=== PATIENT | female | born 1955 | race Caucasian/White ===

== ENCOUNTER 2022-05-25 12:01 | Outpatient (REF) | payer MEDICARE, BC, SELFPAY ==
[2022-05-25 15:08] LABS: HCT 38.1 % (36.0-46.0); MCH 25.4 pg (27.0-33.0); MCHC 31.5 % (32.0-36.0); MCV 81 fL (80-95); MPV 9.2 fL (8.0-11.0); Platelet Count 370 10^3/uL (130-400); RBC 4.73 10^6/uL (3.93-5.22); RDW 16.1 % (11.7-14.6); RDW-SD 47.8 fL; WBC 4.88 10^3/uL (4.4-10.8)
[2022-05-25 15:30] LABS: ALT 26 U/L (14-59); AST 24 U/L (15-37); Albumin 4.3 g/dL (3.4-5.0); Alkaline Phosphatase 106 U/L (46-116); Anion Gap 8.3 mmol/L (3-11); BUN 22 mg/dL (7-18); Bilirubin, Total 0.3 mg/dL (0.2-1.0); CO2 27.7 mmol/L (21.0-32.0); CREATININE 0.9 mg/dL (0.55-1.02); Calcium 9.6 mg/dL (8.5-10.1); Calculated LDL 231 mg/dL (<100); Chloride 104 mmol/L (98-107); Cholesterol 311 mg/dL (<200); Estimated GFR 70.51 (mL/min/1.73m2); Glucose 102 mg/dL (74-106); HDL Cholesterol 47 mg/dL (40-60); Potassium 4.2 mmol/L (3.5-5.1); Sodium 140 mmol/L (136-145); Total Protein 7.9 g/dL (6.4-8.2); Triglyceride 166 mg/dL (<150)
[2022-05-25 15:49] LABS: FREE T4 0.72 ng/dL (0.76-1.46)
[2022-05-25 15:56] LABS: Hemoglobin A1C 5.7 % (<5.7)
== END 2022-05-25 12:02 | disposition home or self-care (01) ==
LOC: NCHCN 12:01
PROVIDERS: Visit Provider Family Medicine
DX: R63.5 Abnormal weight gain (principal); R79.89 Other specified abnormal findings of blood chemistry
CPT/HCPCS: 80053; 80061; 85027; 83036; 84439; 84443

== ENCOUNTER 2022-08-24 09:45 | Outpatient (REF) | payer MEDICARE, BC, SELFPAY ==
[2022-08-24 17:00] LABS: TSH (W/Ref FT4) 2.73 uIU/mL (0.36-3.74)
== END 2022-08-24 09:46 | disposition home or self-care (01) ==
LOC: NCHCN 09:45
PROVIDERS: Visit Provider Family Medicine
DX: E03.9 Hypothyroidism, unspecified (principal)
CPT/HCPCS: 84443

== ENCOUNTER 2023-05-28 17:34 | Outpatient (REF) | payer MEDICARE, BC, SELFPAY ==
[2023-05-28 15:44] LABS: Calculated LDL 121 mg/dL (<100); Cholesterol 193 mg/dL (<200); HDL Cholesterol 51 mg/dL (40-60); TSH (W/Ref FT4) 4.56 uIU/mL (0.36-3.74); Triglyceride 108 mg/dL (<150)
[2023-05-28 16:30] LABS: FREE T4 0.89 ng/dL (0.76-1.46)
[2023-05-28 22:27] LABS: Thyroglobulin Antibody 205 U/mL (<=60); Thyroperoxidase Antibody 122 U/mL (<=60)
== END 2023-05-28 17:35 | disposition home or self-care (01) ==
LOC: NCHCN 17:34
PROVIDERS: Visit Provider Family Medicine
DX: E03.9 Hypothyroidism, unspecified (principal); E78.5 Hyperlipidemia, unspecified
CPT/HCPCS: 80061; 84439; 84443; 86376; 86800

== ENCOUNTER 2024-06-01 12:25 | Outpatient (REF) | payer MEDICARE, BC, SELFPAY ==
[2024-06-01 15:27] LABS: Abs Immature Grans 0.02 10^3/uL (0.0-0.06); Absolute Basophil Count 0.09 10^3/uL (0.0-0.2); Absolute Eosinophil Count 0.11 10^3/uL (0.0-0.7); Absolute Lymphocyte Count 1.86 10^3/uL (1.2-3.4); Absolute Neutrophil Count 2.38 10^3/uL (1.2-6.7); Basophils % 1.9 %; Eosinophils % 2.3 %; HCT 41.7 % (36.0-46.0); HGB 13.3 g/dL (11.2-15.7); Immature Grans % 0.4 %; Lymphocytes % 38.3 %; MCH 27.3 pg (27.0-33.0); MCHC 31.9 % (32.0-36.0); MCV 86 fL (80-95); MPV 9.5 fL (8.0-11.0); Monocytes % 8.2 %; Neutrophils % 48.9 %; Platelet Count 322 10^3/uL (130-400); RBC 4.88 10^6/uL (3.93-5.22); RDW-SD 47.1 fL; WBC 4.86 10^3/uL (4.4-10.8)
[2024-06-01 16:30] LABS: Albumin 4.4 g/dL (3.4-5.0); Alkaline Phosphatase 104 U/L (46-116); BUN 16 mg/dL (7-18); HDL Cholesterol 44 mg/dL (>or=50)
[2024-06-01 16:37] LABS: ALT 28 U/L (14-59); AST 29 U/L (15-37); Bilirubin, Total 0.38 mg/dL (0.2-1.0); CREATININE 0.8 mg/dL (0.55-1.02); Calcium 9.6 mg/dL (8.5-10.1); Calculated LDL 111 mg/dL (<100); Chloride 104 mmol/L (98-107); Cholesterol 194 mg/dL (<200); Estimated GFR 80.21 (mL/min/1.73m2); Glucose 94 mg/dL (74-106); Potassium 4.9 mmol/L (3.5-5.1); Sodium 143 mmol/L (136-145); TSH (W/Ref FT4) 5.89 uIU/mL (0.36-3.74); Triglyceride 195 mg/dL (<150)
[2024-06-02 17:52] LABS: T4, Free 1.1 ng/dL (0.8-2.2)
== END 2024-06-01 12:26 | disposition home or self-care (01) ==
LOC: NCHCN 12:25
PROVIDERS: PCP Family Medicine; Visit Provider Family Medicine
DX: E78.5 Hyperlipidemia, unspecified (principal); R22.1 Localized swelling, mass and lump, neck
CPT/HCPCS: 80053; 80061; 84439; 84443; 85025

== ENCOUNTER 2024-07-30 09:30 | Outpatient (REF) | payer MEDICARE, BC, SELFPAY ==
[2024-07-30 15:51] LABS: TSH (W/Ref FT4) 2.31 uIU/mL (0.36-3.74)
== END 2024-07-30 09:31 | disposition home or self-care (01) ==
LOC: NCHCN 09:30
PROVIDERS: PCP Family Medicine; Visit Provider Family Medicine
DX: E03.9 Hypothyroidism, unspecified (principal)
CPT/HCPCS: 84443

== ENCOUNTER 2024-11-16 16:24 | Outpatient (REF) | payer MEDICARE, BC, SELFPAY ==
[2024-11-16 16:10] LABS: Anion Gap 10.2 mmol/L (3-11); BUN 14 mg/dL (7-18); CO2 27.8 mmol/L (21.0-32.0); Calcium 9.1 mg/dL (8.5-10.1); Chloride 103 mmol/L (98-107); Estimated GFR 94.15 (mL/min/1.73m2); Glucose 99 mg/dL (74-106); Potassium 4.1 mmol/L (3.5-5.1); Sodium 141 mmol/L (136-145); TSH 2.87 uIU/mL (0.36-3.74)
[2024-11-17 09:37] LABS: Magnesium 2.2 mg/dL (1.8-2.4)
== END 2024-11-16 16:25 | disposition home or self-care (01) ==
LOC: NCHCN 16:24
PROVIDERS: PCP Family Medicine; Visit Provider Family Medicine
DX: E03.9 Hypothyroidism, unspecified (principal); E78.5 Hyperlipidemia, unspecified
CPT/HCPCS: 80048; 83735; 84443